=== PATIENT | male | born 1975 | race African-American/Black ===

== ENCOUNTER 2019-01-21 12:10 | Outpatient (CLI) | payer OTHER | END 2019-01-21 12:22 | disposition short-term general hospital (02) | LOC: AMB 12:10 | DX: R41.82 Altered mental status, unspecified (principal); F22 Delusional disorders | CPT/HCPCS: A0425; A0427 ==

== ENCOUNTER 2019-01-21 12:39 | Emergency (ER) | payer OTHER ==
[~2019-01-21] VITALS: Ht 167.6 cm; Wt 72.6 kg
[2019-01-21] VITALS (8 sets, daily range): BP systolic 156–196; BP diastolic 75–126; TEMP 98.4–98.9
[2019-01-21 13:02] LABS: PLATELET COUNT 81 K/uL (142-355)
[2019-01-21 13:14] LABS: POTASSIUM 2.3 mmol/L (3.6-5.2)
[2019-01-21 17:12] LABS: POTASSIUM 3.8 mmol/L (3.6-5.2)
== END 2019-01-21 19:45 | disposition still patient (30) ==
LOC: ED 12:39 → MED/SURG 16:35 → ED 16:35 → MED/SURG 16:35 → ED 19:45
PROVIDERS: Emergency Medicine Emergency Medical Services
DX: R41.82 Altered mental status, unspecified (principal); E87.6 Hypokalemia; E83.42 Hypomagnesemia; E83.51 Hypocalcemia; I45.81 Long QT syndrome
CPT/HCPCS: 36415; 80053; 80307; 80320; 81000; 82140; 82550; 82553; 83735; 84484; 85027; 85379; 93005; 96360; 96361; 96365; 96366; 96375; 99284; J0610; J2405; J3475